=== PATIENT | male | born 1960 | race African-American/Black ===

== ENCOUNTER 2020-09-24 05:53 | Inpatient (IN) ==
[2020-09-24] MEDS ORDERED: ERTAPENEM 1,000 MG in SODIUM CHLORIDE 0.9% 100 ML IV ONE (06:00)
[2020-09-24] MEDS ORDERED: ALVIMOPAN 12 MG CAPSULE PO ONE (06:00)
[2020-09-24] MEDS ORDERED: MIDAZOLAM 2 MG/2 ML VIAL ONE (06:09)
[2020-09-24] MEDS ORDERED: fentaNYL 100 MCG/2 ML VIAL ONE ×2 (06:09→09:03)
[2020-09-24] MEDS ORDERED: LIDOCAINE 2% 5 ML VIAL ONE (06:21)
[2020-09-24] MEDS ORDERED: ROCURONIUM 50 MG/5 ML VIAL IV ONE (06:21)
[2020-09-24] MEDS ORDERED: propofoL 200 MG/20 ML VIAL IV ONE (06:21)
[2020-09-24] MEDS ORDERED: DIAZEPAM 5 MG TABLET PO ONE (06:28)
[2020-09-24] MEDS ORDERED: ACETAMINOPHEN 500 MG TABLET PO ONE (06:28)
[2020-09-24] MEDS ORDERED: GABAPENTIN 400 MG CAPSULE PO ONE (06:28)
[2020-09-24] MEDS ORDERED: FAMOTIDINE 20 MG TABLET PO ONE (06:28)
[2020-09-24] MEDS ORDERED: BUPIVACAINE MPF 0.25% 30 ML VIAL ONE (06:37)
[2020-09-24] MEDS: LACTATED RINGERS 1,000 ML IV SCH ×4 (06:45→22:03)
[2020-09-24] MEDS ORDERED: INDOCYANINE GREEN 25 MG VIAL IV ONE (07:39)
[2020-09-24] MEDS ORDERED: TISSUE ADHESIVE 1 EACH APPLICATOR TOP ONE (07:40)
[2020-09-24] MEDS ORDERED: ONDANSETRON 4 MG/2 ML VIAL ONE (08:02)
[2020-09-24] MEDS ORDERED: LACTATED RINGERS 1,000 ML IV ONE (08:02)
[2020-09-24] MEDS ORDERED: DEXAMETHASONE 4 MG/1 ML VIAL ONE (08:02)
[2020-09-24] MEDS ORDERED: SEVOFLURANE 1 UNIT/15 MINUTE INH ONE ×5 (08:03→09:27)
[2020-09-24] MEDS ORDERED: PHENYLEPHRINE 1 MG/10 ML SYRINGE IV ONE (08:03)
[2020-09-24] MEDS ORDERED: NEOSTIGMINE 10 MG/10 ML VIAL ONE (09:05)
[2020-09-24] MEDS ORDERED: GLYCOPYRROLATE 0.4 MG/2 ML VIAL ONE (09:05)
[2020-09-24] MEDS: HYDROmorphone 2 MG/1 ML VIAL IV PRN ×5 (10:00→15:09)
[2020-09-24] MEDS ORDERED: ONDANSETRON 4 MG/2 ML VIAL IV PRN ×2 (10:03→10:38)
[2020-09-24] MEDS ORDERED: ALBUTEROL 2.5 MG/3 ML NEB RESP TX PRN (10:38)
[2020-09-24 10:55] LABS: Hematocrit 39.3 VOL% (42.0-52.0); Hemoglobin 13.6 GM/DL (14.0-18.0); Red Blood Count 4.37 MC/CUMM (3.8-5.5); White Blood Count 17.4 T/CUMM (4-12)
[2020-09-24 10:56] LABS: Basophils % 0.2 % (0.0-0.8); Eosinophils # 0.1 10*3/uL (0.0-0.87); Eosinophils % 0.5 % (0.00-10.9); Immature Granulocytes % 0.6 %; Immature Granulocytes Absolute 0.11 #; Lymphocytes # 1.4 10*3/uL (1.4-4.0); Lymphocytes % 8.1 % (21.2-54.2); Mean Corpuscular HGB Conc 34.6 GM/DL (32-36); Mean Corpuscular Volume 89.9 FL (87-102); Mean Platelet Volume 9.4 FL (9.6-12.0); Monocytes % 5.4 % (1.7-12.7); Neutrophils % 85.2 % (38.7-73.9); Platelet Count 309 T/CUMM (130-400); Red Cell Distribution Width 12.8 % (9.3-17.3)
[2020-09-24 11:44] LABS: Calcium 8.4 MG/DL (8.5-10.1); Osmolality,Calculated 269.2 MOS/KG (273-304); Potassium 3.8 MMOL/L (3.5-5.1)
[2020-09-24] MEDS: KETOROLAC 30 MG/1 ML VIAL IV SCH ×2 (11:59→18:31)
[2020-09-24] MEDS: ALVIMOPAN 12 MG CAPSULE PO SCH (20:48)
[2020-09-25] MEDS: LACTATED RINGERS 1,000 ML IV SCH ×2 (02:45→08:41)
[2020-09-25] MEDS: HYDROmorphone 2 MG/1 ML VIAL IV PRN (03:59)
[2020-09-25] MEDS ORDERED: ENOXAPARIN 40 MG/0.4 ML SYRINGE SUBCUT SCH (05:00)
[2020-09-25 05:18] LABS: Basophils % 0.2 % (0.0-0.8); Eosinophils % 0.2 % (0.00-10.9); Hematocrit 37.9 VOL% (42.0-52.0); Hemoglobin 12.5 GM/DL (14.0-18.0); Immature Granulocytes % 0.5 %; Immature Granulocytes Absolute 0.06 #; Lymphocytes # 1.2 10*3/uL (1.4-4.0); Lymphocytes % 9.2 % (21.2-54.2); Mean Corpuscular Volume 91.3 FL (87-102); Mean Platelet Volume 9.6 FL (9.6-12.0); Monocytes % 8.5 % (1.7-12.7); Neutrophils % 81.4 % (38.7-73.9); Platelet Count 292 T/CUMM (130-400); Red Blood Count 4.15 MC/CUMM (3.8-5.5); Red Cell Distribution Width 13.1 % (9.3-17.3); White Blood Count 12.6 T/CUMM (4-12)
[2020-09-25 05:41] LABS: Calcium 8.4 MG/DL (8.5-10.1); Osmolality,Calculated 272.1 MOS/KG (273-304); Potassium 4.2 MMOL/L (3.5-5.1)
[2020-09-25 05:42] LABS: Band Neutrophils 2 % (0-10); Lymphocytes 8 % (20-55); Platelet Estimate Normal; Segmented Neutrophils 87 % (50-85); Total Cells Counted 100
[2020-09-25] MEDS: KETOROLAC 30 MG/1 ML VIAL IV SCH ×3 (05:54→11:39)
[2020-09-25] MEDS: ALVIMOPAN 12 MG CAPSULE PO SCH (08:37)
[2020-09-25] MEDS ORDERED: NON-FORMULARY MEDICATION (Fluticasone Furoate-Vilanterol [Breo Ellipta] 100-25 mcg/dose Bl INH SCH (09:00)
[2020-09-25] MEDS ORDERED: ATORVASTATIN 20 MG TABLET PO SCH (09:00)
[2020-09-25 16:37] VITALS: BP 153/77
== END 2020-09-25 17:15 | disposition home or self-care (01) | DRG 331 ==
LOC: N.OR 05:53 → N.SDSINP 05:58 → N.3E 10:24
PROVIDERS: ADMIT Surgery; ATTEND Surgery